=== PATIENT | female | born 1975 | race Caucasian/White ===

== ENCOUNTER → 2018-10-10 | Outpatient (REF) | payer OTHER ==
[2018-10-10 20:02] LABS: APPEARANCE, URINE CLEAR (CLEAR); BACTERIA, URINE AUTO 3+ (NEGATIVE); BILIRUBIN, URINE AUTO NEGATIVE (NEGATIVE); BLOOD, URINE BLOOD 1+ (NEGATIVE); COLOR, URINE YELLOW (YELLOW); GLUCOSE, URINE (UA) AUTO NEGATIVE (NEGATIVE); KETONE, URINE AUTO NEGATIVE (NEGATIVE); LEUKOCYTE ESTERASE, URINE AUTO 3+ (NEGATIVE); NITRITE, URINE AUTO NEGATIVE (NEGATIVE); PROTEIN, URINE AUTO NEGATIVE (NEGATIVE); RBC, URINE AUTO 13 /HPF (0-3); SPECIFIC GRAVITY URINE AUTO 1.011 (1.002-1.035); SQUAMOUS EPITHELIAL CELL UR AU 0 /HPF (0-6); UROBILINOGEN, URINE AUTO 0.2 mg/dL (0.0-2.0); WBC, URINE AUTO 66 /HPF (0-3)
== END ==
LOC: M SFHCLERA 14:58
PROVIDERS: ATTEND Family Medicine
DX: R30.0 Dysuria (principal)
CPT/HCPCS: 81001; 81002; 81025; 87088; 87186; G0463

== ENCOUNTER → 2018-11-14 | Outpatient (REF) | payer OTHER ==
[2018-11-14 15:51] LABS: BASO # 0.1 10^3/uL (0.0-0.2); BASO % 1.6 % (0.0-1.0); EOS # 0.1 10^3/uL (0.0-0.5); EOS % 1.9 % (0.0-3.0); HEMATOCRIT 39.2 % (36.0-47.0); HEMOGLOBIN 12.8 g/dl (12.0-15.5); LYMPH # 1.3 10^3/uL (1.5-5.0); LYMPH % 34.7 % (24.0-44.0); MEAN CORPUSCULAR HEMOGLOBIN 30.6 pg (27.0-33.0); MEAN CORPUSCULAR HGB CONC 32.7 g/dl (32.0-36.5); MEAN CORPUSCULAR VOLUME 93.8 fl (80.0-96.0); MONO # 0.3 10^3/uL (0.0-0.8); MONO % 7.3 % (0.0-5.0); NEUTROPHILS % 54.5 % (36.0-66.0); PLATELET COUNT, AUTOMATED 212 10^3/uL (150-450); RED BLOOD COUNT 4.18 10^6/uL (4.00-5.40); WHITE BLOOD COUNT 3.7 10^3/uL (4.0-10.0)
[2018-11-14 15:54] LABS: ALBUMIN 3.9 GM/DL (3.2-5.2); ALT/SGPT 37 U/L (12-78); BILIRUBIN,TOTAL 0.7 MG/DL (0.2-1.0); BLOOD UREA NITROGEN 9 MG/DL (7-18); CALCIUM LEVEL 8.6 MG/DL (8.5-10.1); CARBON DIOXIDE LEVEL 30 MEQ/L (21-32); CHLORIDE LEVEL 107 MEQ/L (98-107); CHOLESTEROL LEVEL 205 MG/DL (<200); CREATININE FOR GFR 0.68 MG/DL (0.55-1.30); GLOMERULAR FILTRATION RATE > 60.0 (>58); GLUCOSE, FASTING 84 MG/DL (70-100); HDL CHOLESTEROL 74 MG/DL (>40); LDL CHOLESTEROL 118 MG/DL (<100); NON-HDL-C 131 MG/DL; POTASSIUM SERUM 4.1 MEQ/L (3.5-5.1); SODIUM LEVEL 142 MEQ/L (136-145); TOTAL PROTEIN 6.5 GM/DL (6.4-8.2); TRIGLYCERIDES LEVEL 64 MG/DL (<150)
[2018-11-14 16:01] LABS: TOTAL 25(OH) VITAMIN D 26.7 NG/ML (30.0-100.0)
== END ==
LOC: M SFHCLERA 10:09
PROVIDERS: ATTEND Nurse Practitioner Family
DX: Z00.00 Encounter for general adult medical examination without abnormal findings (principal); R10.2 Pelvic and perineal pain; Z13.220 Encounter for screening for lipoid disorders; Z86.39 Personal history of other endocrine, nutritional and metabolic disease

== ENCOUNTER → 2018-11-20 | Outpatient (CLI) | payer OTHER ==
--- NOTE | 2018-11-20 15:25 | REP ---
Pelvic ultrasound including transabdominal, endovaginal and Doppler ultrasound assessment: The bladder is adequately distended. The uterus is anteverted and normal size measuring 8.7 x 4.9 x 5.1 cm. There are Nabothian cysts in the cervix. The endometrium is not thickened measuring 3.4 mm. Right ovary: Right ovary measures 2.4 x 1.9 x 1.3 cm and is normal size. There is no dominant mass or cyst. There is questionably a right adnexal hydrosalpinx, measuring 7 mm in diameter on endovaginal images. There is right ovarian vascular flow with the Doppler resistive index in the parenchymal arteries measuring 0.39. Left ovary: The the left ovary measures 3.1 x 1.9 x 3.1 cm and is normal size. There is a dominant follicle measuring 1.9 cm. There is vascular flow in the left ovary with the Doppler resistive index in the parenchymal arteries measuring 0.50. On transabdominal images there is a bowel loop artifact versus mass in the left adnexa, not connected to the ovary. This could not be reproduced on the endovaginal images. There is no free fluid in the pelvis. Impression: Questionable right hydrosalpinx. Questionable left adnexal mass versus bowel loop artifact not connected to the ovary, seen on transabdominal images measuring 3.4 by 1.7 x 2.6 cm. This could not be reproduced on endovaginal images. Electronically Signed by Cornell Brown MD 11/20/2018 03:16 P
== END ==
LOC: M LRY 12:21
PROVIDERS: ATTEND Nurse Practitioner Family
DX: Z00.00 Encounter for general adult medical examination without abnormal findings (principal); R10.2 Pelvic and perineal pain

== ENCOUNTER → 2018-11-20 | Outpatient (CLI) | payer OTHER | LOC: M RAD 12:02 | PROVIDERS: ATTEND Nurse Practitioner Family | DX: R10.2 Pelvic and perineal pain (principal); Z53.9 Procedure and treatment not carried out, unspecified reason ==

== ENCOUNTER → 2019-04-04 | Outpatient (CLI) | payer OTHER ==
--- NOTE | 2019-04-07 07:40 | REP ---
Clinical: Pelvic pain. Technique: Transabdominal pelvic ultrasound followed by transvaginal examination for better evaluation of the endometrium and adnexa with color Doppler evaluation of the ovaries. Findings: Heterogeneous anteverted uterus measures 9.7 x 4.7 x 6.2 cm. Endometrial complex measures 9.0 mm thickness. Evidence of prior section with scarring along the anterior margin of the uterus. Bilateral ovaries are normal in appearance and vascularity without torsion. Right ovary measures 3.1 x 1.6 x 2.5 cm (RI 0.49) and includes 1.8 x 1.5 x 1.2 cm (RI 0.73) physiologic cyst and multiple follicles. Left ovary measures 3.1 x 1.4 x 2.2 cm with multiple follicles. No pelvic fluid or adnexal mass lesion. Bladder is under distended. Impression: Normal pelvic ultrasound.
== END ==
LOC: M WHC 10:53
PROVIDERS: ATTEND Advanced Practice Midwife
DX: R10.2 Pelvic and perineal pain (principal)

== ENCOUNTER → 2019-10-16 | Outpatient (CLI) | payer OTHER ==
[2019-10-16 15:25] LABS: FOLLICLE STIMULATING HORMONE 40.3 mIU/mL; THYROID STIMULATING HORMONE 1.24 uIU/ML (0.358-3.740)
[2019-10-16 15:26] LABS: LUTEINIZING HORMONE 19.4 mIU/mL; PROLACTIN 4.9 NG/ML
[2019-10-16 15:40] LABS: HEMOGLOBIN A1c 5.2 %
[2019-10-18 13:07] LABS: TESTOSTERONE FREE (DIRECT) 0.3 pg/mL (0.0-4.2); TESTOSTERONE TOTAL FOR T&D < 3.0 ng/dL (8-48)
== END ==
LOC: M PLALAB 11:55
PROVIDERS: ATTEND Advanced Practice Midwife
DX: R10.2 Pelvic and perineal pain (principal); R68.82 Decreased libido